=== PATIENT | male | born 1955 | race Caucasian/White ===

== ENCOUNTER 2022-03-24 01:21 | Day surgery (SDC) | payer MEDICARE, SELFPAY ==
[2022-02-19 13:44] VITALS: BMI 28.7
[2022-03-11 14:23] VITALS: BMI 28.7
[2022-03-24 10:14] VITALS: BP 137/95; PULSE 90; RESP 18; TEMP 36.4; O2SAT 99; BMI 27.7
[2022-03-24] MEDS: LACTATED RINGERS 1,000 ML 150 ML IV CONT (10:26)
--- NOTE | 2022-03-24 10:34 | P.PNAN_ITS ---
Anes - Initial Pre Proc Eval Procedure: Operation Date: 03/24/22 11:30 Proposed Procedures p Screening Colonoscopy - Zana Lamas MD Date/Time: 03/24/22 10:34 Surgeon: Zana Lamas MD Pre Op Diagnosis: neoplasm screening Patient Data Age: 66 Gender: M Height: 1.93 m Weight: 103.4 kg Last Vital Signs Temp 97.5 F L 03/24/22 10:14 Pulse 90 03/24/22 10:14 Resp 18 03/24/22 10:14 BP 137/95 H 03/24/22 10:14 Pulse Ox 99 03/24/22 10:14 Allergies Allergy/AdvReac Type Severity Reaction Status Date / Time No Known Allergies Allergy Mild Verified 03/11/22 14:21 Home Medications Medication Instructions Recorded Confirmed Type aspirin [Adult Low Dose Aspirin] 81 mg PO DAILY 02/19/22 03/24/22 History lisinopril 20 mg PO DAILY 02/19/22 03/24/22 History mv,Ca,kos-izzk-FL-lycopene 1 tablet PO DAILY 02/19/22 03/24/22 History [Centrum Men] triamterene-hydrochlorothiazid 1 tablet PO DAILY 02/19/22 03/24/22 History Patient hx anesthesia problems: none Family hx anesthesia problems: none Results Review: All pre-operative results and documents have been reviewed as part of the pre-operative evaluation. [facility] Past Medical History Medical History (Updated 03/21/22 @ 15:44 by David Carney DO) Hyperlipidemia Hypertension Surgical History Surgical History (Updated 03/21/22 @ 15:44 by David Carney DO) History of appendectomy Family History Family History (Updated 12/14/14 @ 13:38 by DOCTOR UNKNOWN) Father Family history of Alzheimer's disease Other Family history of malignant neoplasm Social History Social History Smoking status: Current every day smoker Tobacco type: cigarettes Alcohol intake: current Drinks per week: 5 Alcohol use details: 2 drinks monthly Substance use: never Substance use type: does not use Living arrangements: with family Spiritual care concerns: No Anes - Eval Final PreProcedure Day of Procedure 03/24/22 10:34 Patient weight: overweight Heart: regular rate and rhythm Lungs: clear to auscultation Airway: Mallampati scale class II Neurological: alert and oriented Last oral intake: >/= 8 hours ASA classification: II Emergent: no Anesthetic plan: proceed Anesthesia type and monitoring: general GIVS and standard monitoring Results Review: All pre-operative results and documents have been reviewed as part of the pre-operative evaluation. Informed Consent: The patient's anesthetic plan and its attendant risks and benefits were discussed with the patient/family/POA. Questions were solicited and answers provided to the satisfaction of the patient/family/POA.
--- NOTE | 2022-03-24 10:49 | WPDGICN ---
Assessment and Plan Assessment and plan (1) Encounter for screening colonoscopy: Code(s): Z12.11 - Encounter for screening for malignant neoplasm of colon Status: Acute Assessment and Plan: Patient presents for screening colonoscopy. Last exam 10 years ago is unremarkable. Further recommendations will be given after endoscopy. (2) Family hx of colon cancer: Code(s): Z80.0 - Family history of malignant neoplasm of digestive organs Status: Acute Assessment and Plan: Patient reports that his sister was identified as having colon cancer. GI Consult Note Consult date/time: 03/24/22 10:49 HPI: Jon Ji is a 66 year old male Presents for screening colonoscopy. Patient's current weight appetite bowel movements are normal. Patient denies abdominal pain. He has had no bleeding. His last colonoscopy 10 years ago was reported to be unremarkable. Patient does report that his sister had colon cancer. This was attributed to her lifestyle. Patient presents today for neoplasia screening. Review of Systems Review of Systems: All systems reviewed & are unremarkable except as noted in HPI and below PMFSH Past Medical History Medical History (Updated 03/24/22 @ 10:50 by Zana Lamas MD) Hyperlipidemia Hypertension Surgical History Surgical History (Updated 03/21/22 @ 15:44 by David Carney DO) History of appendectomy Family History Family History (Updated 12/14/14 @ 13:38 by DOCTOR UNKNOWN) Father Family history of Alzheimer's disease Other Family history of malignant neoplasm Social History Social History Smoking status: Current every day smoker Tobacco type: cigarettes Alcohol intake: current Drinks per week: 5 Alcohol use details: 2 drinks monthly Substance use: never Substance use type: does not use Living arrangements: with family Spiritual care concerns: No Meds Home Medications and Allergies Home Medications Medication Instructions Recorded Confirmed Type aspirin [Adult Low Dose Aspirin] 81 mg PO DAILY 02/19/22 03/24/22 History lisinopril 20 mg PO DAILY 02/19/22 03/24/22 History mv,Ca,wwp-skuw-ZE-lycopene 1 tablet PO DAILY 02/19/22 03/24/22 History [Centrum Men] triamterene-hydrochlorothiazid 1 tablet PO DAILY 02/19/22 03/24/22 History Allergies Allergy/AdvReac Type Severity Reaction Status Date / Time No Known Allergies Allergy Mild Verified 03/11/22 14:21 Vital Signs Vital Signs - 24 hr 03/24/22 10:14 Temperature 97.5 F L Pulse Rate 90 Respiratory Rate 18 Blood Pressure 137/95 H Pulse Oximetry 99 Exam Narrative: Physical exam reveals patient to be alert. Vital signs stable. HEENT exam is unremarkable. Patient is anicteric. Lungs are clear to auscultation and percussion. Heart is without murmur or extra sounds. Abdominal exam bowel sounds are present soft nontender with no organomegaly. Digital external rectal exam is normal.
[2022-03-24 11:18] VITALS: BP 112/74; PULSE 80; RESP 12; O2SAT 97
[2022-03-24 11:24] VITALS: BP 96/64; PULSE 80; RESP 20; O2SAT 99
[2022-03-24 11:34] VITALS: BP 116/84; PULSE 80; RESP 15; O2SAT 99
== END 2022-03-24 11:56 | disposition home or self-care (01) ==
PROVIDERS: PCP Physician Assistant; Visit Provider Internal Medicine Gastroenterology
PROC: 0DJD8ZZ Inspection of Lower Intestinal Tract, Via Natural or Artificial Opening Endoscopic (ICD-10-PCS; CPT 45378; principal; 2022-03-24 11:30)
DX: Z12.11 Encounter for screening for malignant neoplasm of colon (principal); D12.2 Benign neoplasm of ascending colon; K64.8 Other hemorrhoids; Z80.0 Family history of malignant neoplasm of digestive organs; I10 Essential (primary) hypertension; E78.5 Hyperlipidemia, unspecified; F17.210 Nicotine dependence, cigarettes, uncomplicated; Z79.82 Long term (current) use of aspirin
CPT/HCPCS: 45385; 88305; J2704; J7120